=== PATIENT | male | born 1945 ===

== ENCOUNTER 2018-04-25 15:59 | Outpatient (CLI) | payer OTHER | END 2018-04-25 16:05 | disposition home or self-care (01) | LOC: LAB 15:59 | DX: R97.20 Elevated prostate specific antigen [PSA] (principal) ==

== ENCOUNTER 2018-05-06 07:03 | Outpatient (CLI) | payer OTHER | END 2018-05-06 07:09 | disposition home or self-care (01) | LOC: SONOGRAMA 07:03 | DX: C61 Malignant neoplasm of prostate (principal); R97.20 Elevated prostate specific antigen [PSA] ==

== ENCOUNTER 2018-05-19 13:59 | Outpatient (CLI) | payer OTHER | END 2018-05-19 14:04 | disposition home or self-care (01) | LOC: TOM 13:59 | DX: C61 Malignant neoplasm of prostate (principal) ==

== ENCOUNTER → 2018-06-15 | Outpatient (CLI) | payer OTHER | END | disposition home or self-care (01) | LOC: NUCLEAR 09:30 | DX: C61 Malignant neoplasm of prostate (principal) | CPT/HCPCS: 78306; 78320; A9503 ==